=== PATIENT | female | born 1980 | race Caucasian/White ===

== ENCOUNTER 2019-01-14 21:49 | Emergency (ER) | payer SELFPAY ==
[2019-01-14] MEDS: DEXAMETHASONE 10 MG/ML 1 ML INJ IV (22:27)
[2019-01-14] MEDS: METOCLOPRAMIDE 10 MG INJ IV (22:27)
[2019-01-14] MEDS: KETOROLAC 30 MG INJ IV (22:27)
[2019-01-14] MEDS: SOD CHLORIDE 0.9% 1,000 ML IV (22:27)
[2019-01-14 22:34] LABS: ADD MAN DIFF? NO
[2019-01-14 22:36] LABS: BASOPHILS % 0.2 % (0.0-2.0); EOSINOPHILS # 0.2 10^3/ul (0.0-0.5); EOSINOPHILS % 1.5 % (0.0-7.0); HEMATOCRIT 38.4 % (37.0-47.0); HEMOGLOBIN 12.7 g/dl (12.0-16.0); LYMPHOCYTES # 4.1 10^3/ul (0.8-2.9); LYMPHOCYTES % 32.6 % (15.0-51.0); MEAN CORPUSCULAR HEMOGLOBIN 29.5 pg (29.0-33.0); MEAN CORPUSCULAR HGB CONC 33.1 g/dl (32.0-37.0); MEAN CORPUSCULAR VOLUME 89.1 fl (82.0-101.0); MEAN PLATELET VOLUME 9.4 fl (7.4-10.4); MONOCYTE # 0.9 10^3/ul (0.3-0.9); NEUTROPHIL # 7.4 10^3/ul (1.6-7.5); NEUTROPHILS % 58.5 % (39.0-77.0); PLATELET COUNT 390 10^3/UL (140-415); RED BLOOD COUNT 4.31 10^6/ul (4.20-5.40); RED CELL DISTRIBUTION WIDTH 12.5 % (11.5-14.5)
[2019-01-14 22:36] LABS: WHITE BLOOD COUNT 12.7 10^3/ul (4.8-10.8)
[2019-01-14 22:44] LABS: ANION GAP 5 (5-13); BLOOD UREA NITROGEN 8 mg/dl (7-20); CALCIUM 9.4 mg/dl (8.4-10.2); CARBON DIOXIDE 31 mmol/L (21-31); CHLORIDE 101 mmol/L (97-110); CREATININE 0.63 mg/dl (0.44-1.00); Estimated GFR > 60 mL/min (>60); GLUCOSE 111 mg/dl (70-220); POTASSIUM 3.5 mmol/L (3.5-5.1); SODIUM 137 mmol/L (135-144)
== END 2019-01-14 23:35 | disposition home or self-care (01) ==
LOC: E/R 21:49
DX: R51 Headache (principal)
CPT/HCPCS: 36415; 80048; 81025; 85025; 96374; 96375; 99284-25